=== PATIENT | male | born 1955 | race Native Hawaiian/Other Pacific Islander ===

== ENCOUNTER 2020-07-12 17:15 | Emergency (ER) | payer OTHER ==
[~2020-07-12] VITALS: Ht 172.7 cm; Wt 90.7 kg
[~2020-07-12 17:15] MED LIST: CLOP75TA2 PO; GLYBURIDE2.5 MG PO; LISI10TA11 PO; METF500T PO; METO50TA63 PO
[2020-07-12 19:08] LABS: PLATELET COUNT 178 K/uL (142-355)
[2020-07-12 20:55] VITALS: BP 138/89; TEMP 97.4
== END 2020-07-12 20:55 | disposition home or self-care (01) ==
LOC: ED 17:15
PROVIDERS: Family Medicine
DX: U07.1 COVID-19 (principal); R11.2 Nausea with vomiting, unspecified; E87.6 Hypokalemia; E86.0 Dehydration
CPT/HCPCS: 36415; 80053; 85027; 87635; 96360; 96375; 99284; J2405; U0003